=== PATIENT | female | born 1975 | race Caucasian/White ===

== ENCOUNTER 2021-03-12 19:02 | Emergency (ER) | payer MEDICAID ==
--- NOTE | 2021-03-12 19:58 | EDM.PDOC ---
ED HPI GENERAL MEDICAL PROBLEM - General Chief Complaint: ENT Problem Stated Complaint: POSSIBLE EAR INFECTION Time Seen by Provider: 03/12/21 19:46 Source of Information: Reports: Patient History Limitations: Reports: No Limitations - History of Present Illness INITIAL COMMENTS - FREE TEXT/NARRATIVE: Maylin is a 46-year-old female presenting to the ED for evaluation of right ear pain. She states that she was seen in the walk-in clinic of [facility] yesterday and was started on polymyxin Neosporin otic. She has been taking this for the last 24 hours but has had 0 relief of pain. In fact the pain has been worsening on the right ear causing headache. She denies any fever or chills. She does have some nasal congestion. She has had no sore throat or cough. She denies any shortness of breath or chest pain. He has had some rhinorrhea. Right Ear Pain Score (Numeric/FACES): 10 - Related Data Allergies Allergy/AdvReac Type Severity Reaction Status Date / Time diphenhydramine Allergy Vomiting Verified 03/12/21 19:42 [From Benadryl] Penicillins Allergy Rash Verified 03/12/21 19:42 sumatriptan [From Imitrex] Allergy Vomiting Verified 03/12/21 19:42 Home Meds: Home Meds Erenumab-Aooe [Aimovig Autoinjector] 1 dose INJECT ASDIRECTED 03/12/21 [History] Mirtazapine 1 tab PO DAILY 03/12/21 [History] QUEtiapine Fumarate [Seroquel] 5 tab PO BEDTIME 03/12/21 [History] Sertraline [Zoloft] 2 tab PO DAILY 03/12/21 [History] busPIRone [Buspar] 1 tab PO DAILY 03/12/21 [History] busPIRone [Buspar] 1 tab PO DAILY 03/12/21 [History] lamoTRIgine [Lamotrigine ER] 1 tab PO BEDTIME 03/12/21 [History] ED ROS ENT - Review of Systems Review Of Systems: See Below Constitutional: Reports: No Symptoms HEENT: Reports: Ear Pain (Right ear), Rhinitis (Mild rhinitis with nasal congestion) Respiratory: Reports: No Symptoms Cardiovascular: Reports: No Symptoms Endocrine: Reports: No Symptoms GI/Abdominal: Reports: No Symptoms Neurological: Reports: No Symptoms Psychiatric: Reports: No Symptoms Hematologic/Lymphatic: Reports: No Symptoms Immunologic: Reports: No Symptoms ED EXAM, ENT - Physical Exam Exam: See Below Exam Limited By: No Limitations General Appearance: Alert, Mild Distress Eye Exam: Bilateral Eye: EOMI, PERRL Ears: Normal External Exam, Normal Canal, TM Bulging (Right TM is bulging with a serous effusion), TM Fluid. No: Mastoid Swelling, Canal Blood, Canal D ischarge, Canal Swelling, TM Erythema Nose: Clear Rhinorrhea, Nasal Discharge, Nasal Swelling Mouth/Throat: Normal Inspection, Normal Oropharynx Course - Vital Signs Last Recorded V/S: Last Vital Signs Temp 36.8 C 03/12/21 19:35 Pulse 75 03/12/21 19:35 Resp 16 03/12/21 19:35 BP 163/90 H 03/12/21 19:35 Pulse Ox 96 03/12/21 19:35 - Re-Assessments/Exams Free Text/Narrative Re-Assessment/Exam: 03/12/21 20:01 the patient has a distended right ear with a serous effusion. We tried divers reflex to clear the fluid, however, the left ear "popped" but no change in the right ear. I recommended the use of either intranasal anti- inflammatories like Afrin or oral decongestants like pseudoephedrine to reduce swelling in the nose and allow the eustachian tube to function properly. We also talked about using warm compresses behind the ear to relax eustachian tube. Unfortunately, the antipurine drops are no longer manufactured so we cannot use those to control pain to that but I did recommend the use of either naproxen or ibuprofen for pain control. I did recommend she discontinue the polymyxin Neosporin drops as she does not have an otitis externa. Indications to return to the ED were discussed and she is discharged in satisfactory condition. Departure - Departure Time of Disposition: 19:56 Disposition: Home, Self-Care 01 Clinical Impression: Acute dysfunction of eustachian tube, Acute effusion of right ear - Discharge Information Instructions: Eustachian Tube Dysfunction Referrals: Barbara Haywood DO [Primary Care Provider] - Care Plan Goals: I would recommend using a decongestant like pseudoephedrine or Mucinex, or a nasal decongestant spray like Afrin 12-hour 2 sprays in each nostril twice daily for 2 to 3 days to reduce inflammation and swelling in the nose and allow the eustachian tubes to drain the fluid behind the eardrum which is what is causing your pain. I would not continue using the eardrops prescribed earlier today as they are for an external ear infection which you do not have. You may use naproxen or ibuprofen for pain relief as well. Both of these will also reduce inflammation in addition to taking care of pain. I have given you a work note taking you off work for Tuesday. I do anticipate that she will get better though in the next 24 hours with these measures. Sepsis Event Note (ED) - Evaluation Sepsis Screening Result: No Definite Risk - Focused Exam Vital Signs: Vital Signs Temp Pulse Resp BP Pulse Ox 03/12/21 19:35 36.8 C 75 16 163/90 H 96 - Problem List & Annotations (1) Acute dysfunction of eustachian tube SNOMED Code(s): 71806282, 689743249 Code(s): H69.80 - OTH DISRD OF EUSTACHIAN TUBE, UNSPECIFIED EAR Status: Acute Priority: Low Current Visit: Yes Qualifiers: Laterality: right Qualified Code(s): H69.81 - Other specified disorders of Eustachian tube, right ear (2) Acute effusion of right ear SNOMED Code(s): 37706102 Code(s): H65.191 - OTHER ACUTE NONSUPPURATIVE OTITIS MEDIA, RIGHT EAR Status: Acute Priority: Low Current Visit: Yes - Problem List Review Problem List Initiated/Reviewed/Updated: Yes
== END 2021-03-12 20:15 | disposition home or self-care (01) ==
LOC: JP.ED 19:02
DX: H69.91 Unspecified Eustachian tube disorder, right ear (principal); H93.91 Unspecified disorder of right ear; Z88.0 Allergy status to penicillin; Z88.8 Allergy status to other drugs, medicaments and biological substances
CPT/HCPCS: 99282

== ENCOUNTER 2021-10-03 13:05 | Emergency (ER) | payer MEDICAID ==
[2021-10-03] MEDS ORDERED: Lidocaine 1% 5 ML VIAL INJECT ONE (16:04)
[2021-10-03] MEDS ORDERED: Bacitracin Oint 1 GM U/D Packet TOP ONE (16:04)
[2021-10-03] MEDS ORDERED: Diphtheria,Pertussis(Acell),Tetanus Vaccine 0.5 ML Syringe IM ONE (16:07)
== END 2021-10-03 16:42 | disposition home or self-care (01) ==
LOC: JP.ED 13:05
DX: S61.210A Laceration without foreign body of right index finger without damage to nail, initial encounter (principal); Z90.49 Acquired absence of other specified parts of digestive tract; Z23 Encounter for immunization; Z79.899 Other long term (current) drug therapy; Z88.0 Allergy status to penicillin; Z88.8 Allergy status to other drugs, medicaments and biological substances; W26.8XXA Contact with other sharp object(s), not elsewhere classified, initial encounter; Y99.0 Civilian activity done for income or pay
CPT/HCPCS: 12001; 90471; 90715; 99281; 99282-25

== ENCOUNTER 2023-04-02 10:15 | Emergency (ER) | payer MEDICAID, OTHER | END 2023-04-02 11:17 | disposition home or self-care (01) | LOC: JP.ED 10:15 | DX: L51.9 Erythema multiforme, unspecified (principal); R03.0 Elevated blood-pressure reading, without diagnosis of hypertension; Z88.2 Allergy status to sulfonamides; Z88.8 Allergy status to other drugs, medicaments and biological substances; Z88.1 Allergy status to other antibiotic agents | CPT/HCPCS: 99282 ==

== ENCOUNTER 2024-05-29 18:46 | Emergency (ER) | payer MEDICAID ==
[2024-05-29] MEDS: Proparacaine 0.5% Ophth Soln 15 ML Bottle EYEBOTH ONE (19:22)
[2024-05-29] MEDS: Polymyxin B/Trimethoprim 10 ML Bottle EYEBOTH ONE (20:36)
== END 2024-05-29 20:53 | disposition home or self-care (01) ==
LOC: JP.ED 18:46
DX: S05.02XA Injury of conjunctiva and corneal abrasion without foreign body, left eye, initial encounter (principal); S05.01XA Injury of conjunctiva and corneal abrasion without foreign body, right eye, initial encounter; H51.0 Palsy (spasm) of conjugate gaze; I10 Essential (primary) hypertension; Z86.16 Personal history of COVID-19; Z90.49 Acquired absence of other specified parts of digestive tract; Z79.899 Other long term (current) drug therapy; Z88.8 Allergy status to other drugs, medicaments and biological substances; Z88.0 Allergy status to penicillin; X58.XXXA Exposure to other specified factors, initial encounter
CPT/HCPCS: 99283; A9270-GY

== ENCOUNTER 2024-09-30 22:42 | Emergency (ER) | payer MEDICAID | END 2024-10-01 00:58 | disposition home or self-care (01) | LOC: JP.ED 22:42 | DX: L25.9 Unspecified contact dermatitis, unspecified cause (principal); I10 Essential (primary) hypertension; J45.909 Unspecified asthma, uncomplicated; Z86.16 Personal history of COVID-19; Z87.891 Personal history of nicotine dependence; Z79.899 Other long term (current) drug therapy; Z88.0 Allergy status to penicillin; Z88.8 Allergy status to other drugs, medicaments and biological substances | CPT/HCPCS: 99283 ==

== ENCOUNTER 2024-11-05 12:13 | Emergency (ER) | payer MEDICAID ==
[2024-11-05 13:03] LABS: BASOPHILS ABSOLUTE AUTO 0.06 K/uL (0.00-0.10); BASOPHILS PERCENT AUTO 0.7 % (0.1-1.3); EOSINOPHILS ABSOLUTE AUTO 0.25 K/uL (0.00-0.40); EOSINOPHILS PERCENT AUTO 2.9 % (0.0-5.4); HEMATOCRIT 38.8 % (34.3-46.0); HEMOGLOBIN 12.6 g/dL (11.2-15.5); IMMATURE GRAN PERCENT AUTO 0.2 % (0.0-0.7); LYMPHOCYTES ABSOLUTE AUTO 2.34 K/uL (0.8-3.3); LYMPHOCYTES PERCENT AUTO 27.2 % (11.4-47.7); MEAN CORPUSCULAR HEMOGLOBIN 30.9 pg (31.6-35.5); MEAN CORPUSCULAR HGB CONC 32.5 g/dL (31.6-35.5); MEAN CORPUSCULAR VOLUME 95.1 fL (81.4-99.0); MONOCYTES ABSOLUTE AUTO 0.49 K/uL (0.20-0.90); MONOCYTES PERCENT AUTO 5.7 % (3.3-12.6); NEUTROPHILS ABSOLUTE AUTO 5.45 K/uL (1.0-7.6); NEUTROPHILS PERCENT AUTO 63.3 % (40.0-78.1); PLATELET COUNT,PLT 232 K/uL (130-375); RED BLOOD CELL COUNT 4.08 M/uL (3.77-5.24); WHITE BLOOD CELL COUNT,WBC 8.6 K/uL (3.2-11.0)
[2024-11-05 13:07] LABS: IMMATURE GRAN ABSOLUTE AUTO 0.02 K/uL (0.00-0.23)
[2024-11-05 13:27] LABS: ANION GAP 5.8 mmol/L (5.0-14.0); CREATININE 0.8 mg/dL (0.6-1.0); EST CRCL DRUG DOSING (CG) 78.76 mL/min; POTASSIUM,K 4.1 mmol/L (3.6-5.2)
[2024-11-05] MEDS: Sodium Chloride 0.9% 100 ML IV SCH (13:53)
[2024-11-05] MEDS: Iopamidol 755 Mg/ML 100 ML Bottle IV SCH (13:54)
[2024-11-05] MEDS: Sodium Chloride 0.9% 10 ML Syringe FLUSH ONE (14:18)
== END 2024-11-05 16:37 | disposition home or self-care (01) ==
LOC: JP.ED 12:13
DX: R07.2 Precordial pain (principal); I10 Essential (primary) hypertension; Z88.0 Allergy status to penicillin; Z88.8 Allergy status to other drugs, medicaments and biological substances; Z79.899 Other long term (current) drug therapy; Z86.16 Personal history of COVID-19; Z90.49 Acquired absence of other specified parts of digestive tract
CPT/HCPCS: 36415; 71046; 71275; 80048; 84484; 85025; 85379; 93005; 99285; Q9967; 93010; 99283

== ENCOUNTER 2024-12-02 12:47 | Emergency (ER) | payer MEDICAID ==
[2024-12-02 14:33] LABS: BASOPHILS ABSOLUTE AUTO 0.05 K/uL (0.00-0.10); BASOPHILS PERCENT AUTO 0.5 % (0.1-1.3); EOSINOPHILS ABSOLUTE AUTO 0.15 K/uL (0.00-0.40); EOSINOPHILS PERCENT AUTO 1.5 % (0.0-5.4); IMMATURE GRAN PERCENT AUTO 0.2 % (0.0-0.7); LYMPHOCYTES ABSOLUTE AUTO 2.26 K/uL (0.8-3.3); LYMPHOCYTES PERCENT AUTO 23.3 % (11.4-47.7); MONOCYTES ABSOLUTE AUTO 0.56 K/uL (0.20-0.90); MONOCYTES PERCENT AUTO 5.8 % (3.3-12.6); NEUTROPHILS ABSOLUTE AUTO 6.64 K/uL (1.0-7.6); NEUTROPHILS PERCENT AUTO 68.7 % (40.0-78.1); PLATELET COUNT,PLT 297 K/uL (130-375); RED BLOOD CELL COUNT 4.65 M/uL (3.77-5.24); WHITE BLOOD CELL COUNT,WBC 9.7 K/uL (3.2-11.0)
[2024-12-02 14:34] LABS: IMMATURE GRAN ABSOLUTE AUTO 0.02 K/uL (0.00-0.23)
[2024-12-02 14:51] LABS: APPEARANCE,URINE SLIGHTLY CLOUDY (CLEAR); GLUCOSE,URINE NEGATIVE (NEGATIVE); OCCULT BLOOD,URINE NEGATIVE (NEGATIVE)
[2024-12-02 15:03] LABS: A/G RATIO 0.8 (1.2-2.2); ALANINE AMINOTRANSFERASE,ALT 30 U/L (12-78); ASPARTATE AMNIOTRANSFERASE,AST 25 U/L (15-37); BILIRUBIN TOTAL 0.4 mg/dL (0.2-1.0); BLOOD UREA NITROGEN,BUN 15 mg/dL (7-18); CARBON DIOXIDE,CO2 32 mmol/L (21-32); CHLORIDE,CL 103 mmol/L (100-108); CREATININE 0.9 mg/dL (0.6-1.0); EST CRCL DRUG DOSING (CG) 70.01 mL/min; ESTIMATED GFR 78 mL/min (>60); GLUCOSE RANDOM 99 mg/dL (74-106); POTASSIUM,K 4.1 mmol/L (3.6-5.2); PROTEIN TOTAL,TP 7.7 g/dL (6.4-8.2); SODIUM,NA 141 mmol/L (140-148)
[2024-12-02 15:13] LABS: SQUAMOUS EPITHELIAL CELLS,UR MODERATE /HPF
== END 2024-12-02 18:06 | disposition home or self-care (01) ==
LOC: JP.ED 12:47
DX: R07.9 Chest pain, unspecified (principal); I10 Essential (primary) hypertension; J45.909 Unspecified asthma, uncomplicated; Z86.16 Personal history of COVID-19; Z88.0 Allergy status to penicillin; Z88.8 Allergy status to other drugs, medicaments and biological substances; Z79.01 Long term (current) use of anticoagulants; Z79.899 Other long term (current) drug therapy
CPT/HCPCS: 36415; 71046; 71046-26; 80053; 81001; 84484; 85025; 87086; 93005; 93010; 96372; 99284; 99285; J1171

== ENCOUNTER 2024-12-24 13:54 | Emergency (ER) | payer MEDICAID ==
[2024-12-24] MEDS ORDERED: Ketorolac 30 MG/ML SDV IM ONE (14:28)
[2024-12-24 14:37] LABS: BASOPHILS ABSOLUTE AUTO 0.04 K/uL (0.00-0.10); BASOPHILS PERCENT AUTO 0.4 % (0.1-1.3); EOSINOPHILS ABSOLUTE AUTO 0.28 K/uL (0.00-0.40); EOSINOPHILS PERCENT AUTO 3.0 % (0.0-5.4); IMMATURE GRAN ABSOLUTE AUTO 0.03 K/uL (0.00-0.23); IMMATURE GRAN PERCENT AUTO 0.3 % (0.0-0.7); LYMPHOCYTES ABSOLUTE AUTO 2.48 K/uL (0.8-3.3); LYMPHOCYTES PERCENT AUTO 26.3 % (11.4-47.7); MONOCYTES ABSOLUTE AUTO 0.62 K/uL (0.20-0.90); MONOCYTES PERCENT AUTO 6.6 % (3.3-12.6); NEUTROPHILS ABSOLUTE AUTO 5.97 K/uL (1.0-7.6); NEUTROPHILS PERCENT AUTO 63.4 % (40.0-78.1); PLATELET COUNT,PLT 251 K/uL (130-375); RED BLOOD CELL COUNT 4.19 M/uL (3.77-5.24); WHITE BLOOD CELL COUNT,WBC 9.4 K/uL (3.2-11.0)
== END 2024-12-24 15:19 | disposition home or self-care (01) ==
LOC: JP.ED 13:54
DX: R07.89 Other chest pain (principal); I10 Essential (primary) hypertension; J45.909 Unspecified asthma, uncomplicated; Z90.49 Acquired absence of other specified parts of digestive tract; Z88.0 Allergy status to penicillin; Z88.8 Allergy status to other drugs, medicaments and biological substances; Z79.01 Long term (current) use of anticoagulants; Z79.899 Other long term (current) drug therapy
CPT/HCPCS: 36415; 84484; 85025; 93010; 99283; 99285

== ENCOUNTER 2025-01-19 09:07 | Emergency (ER) | payer MEDICAID ==
[2025-01-19 10:16] LABS: BASOPHILS ABSOLUTE AUTO 0.03 K/uL (0.00-0.10); BASOPHILS PERCENT AUTO 0.3 % (0.1-1.3); EOSINOPHILS ABSOLUTE AUTO 0.16 K/uL (0.00-0.40); EOSINOPHILS PERCENT AUTO 1.8 % (0.0-5.4); IMMATURE GRAN ABSOLUTE AUTO 0.03 K/uL (0.00-0.23); IMMATURE GRAN PERCENT AUTO 0.3 % (0.0-0.7); LYMPHOCYTES ABSOLUTE AUTO 1.79 K/uL (0.8-3.3); LYMPHOCYTES PERCENT AUTO 20.5 % (11.4-47.7); MONOCYTES ABSOLUTE AUTO 0.57 K/uL (0.20-0.90); MONOCYTES PERCENT AUTO 6.5 % (3.3-12.6); NEUTROPHILS ABSOLUTE AUTO 6.17 K/uL (1.0-7.6); NEUTROPHILS PERCENT AUTO 70.6 % (40.0-78.1); PLATELET COUNT,PLT 257 K/uL (130-375); RED BLOOD CELL COUNT 4.36 M/uL (3.77-5.24); WHITE BLOOD CELL COUNT,WBC 8.8 K/uL (3.2-11.0)
[2025-01-19] MEDS: Ondansetron 4 MG Tab.DIS PO ONE (10:31)
[2025-01-19 10:38] LABS: A/G RATIO 0.8 (1.2-2.2); ALANINE AMINOTRANSFERASE,ALT 22 U/L (12-78); ASPARTATE AMNIOTRANSFERASE,AST 17 U/L (15-37); BILIRUBIN TOTAL 0.5 mg/dL (0.2-1.0); BLOOD UREA NITROGEN,BUN 11 mg/dL (7-18); CARBON DIOXIDE,CO2 33 mmol/L (21-32); CHLORIDE,CL 103 mmol/L (100-108); CREATININE 0.6 mg/dL (0.6-1.0); EST CRCL DRUG DOSING (CG) 109.08 mL/min; ESTIMATED GFR 109 mL/min (>60); GLUCOSE RANDOM 92 mg/dL (74-106); POTASSIUM,K 4.1 mmol/L (3.6-5.2); PROTEIN TOTAL,TP 7.6 g/dL (6.4-8.2); SODIUM,NA 138 mmol/L (140-148)
[2025-01-19 11:51] LABS: APPEARANCE,URINE CLEAR (CLEAR); GLUCOSE,URINE NEGATIVE (NEGATIVE); OCCULT BLOOD,URINE NEGATIVE (NEGATIVE)
== END 2025-01-19 12:43 | disposition home or self-care (01) ==
LOC: JP.ED 09:07
DX: R11.2 Nausea with vomiting, unspecified (principal); I10 Essential (primary) hypertension; Z79.899 Other long term (current) drug therapy; Z79.01 Long term (current) use of anticoagulants; Z88.0 Allergy status to penicillin; Z88.8 Allergy status to other drugs, medicaments and biological substances
CPT/HCPCS: 36415; 80053; 81003; 83605; 83690; 85025; 87428; 99284; Q0162

== ENCOUNTER 2025-02-09 11:11 | Emergency (ER) | payer MEDICAID ==
[2025-02-09 11:57] LABS: BASOPHILS ABSOLUTE AUTO 0.06 K/uL (0.00-0.10); BASOPHILS PERCENT AUTO 0.6 % (0.1-1.3); EOSINOPHILS ABSOLUTE AUTO 0.07 K/uL (0.00-0.40); EOSINOPHILS PERCENT AUTO 0.7 % (0.0-5.4); IMMATURE GRAN PERCENT AUTO 0.2 % (0.0-0.7); LYMPHOCYTES ABSOLUTE AUTO 2.23 K/uL (0.8-3.3); LYMPHOCYTES PERCENT AUTO 21.2 % (11.4-47.7); MONOCYTES ABSOLUTE AUTO 0.79 K/uL (0.20-0.90); MONOCYTES PERCENT AUTO 7.5 % (3.3-12.6); NEUTROPHILS ABSOLUTE AUTO 7.37 K/uL (1.0-7.6); NEUTROPHILS PERCENT AUTO 69.8 % (40.0-78.1); PLATELET COUNT,PLT 382 K/uL (130-375); RED BLOOD CELL COUNT 4.57 M/uL (3.77-5.24); WHITE BLOOD CELL COUNT,WBC 10.5 K/uL (3.2-11.0)
[2025-02-09 11:58] LABS: IMMATURE GRAN ABSOLUTE AUTO 0.02 K/uL (0.00-0.23)
[2025-02-09 11:59] LABS: A/G RATIO 0.9 (1.2-2.2); ALANINE AMINOTRANSFERASE,ALT 25 U/L (12-78); ASPARTATE AMNIOTRANSFERASE,AST 23 U/L (15-37); BILIRUBIN TOTAL 0.8 mg/dL (0.2-1.0); BLOOD UREA NITROGEN,BUN 19 mg/dL (7-18); CARBON DIOXIDE,CO2 28 mmol/L (21-32); CHLORIDE,CL 100 mmol/L (100-108); CREATININE 1.0 mg/dL (0.6-1.0); EST CRCL DRUG DOSING (CG) 65.45 mL/min; ESTIMATED GFR 69 mL/min (>60); GLUCOSE RANDOM 116 mg/dL (74-106); POTASSIUM,K 3.7 mmol/L (3.6-5.2); PROTEIN TOTAL,TP 8.1 g/dL (6.4-8.2); SODIUM,NA 140 mmol/L (140-148); TROPONIN I HIGH SENSITIVITY 24.7 pg/mL (<=60.3)
[2025-02-09] MEDS: Sodium Chloride 0.9% 10 ML Syringe FLUSH ONE (12:41)
[2025-02-09] MEDS: Iopamidol 755 Mg/ML 100 ML Bottle IV SCH (12:48)
== END 2025-02-09 14:06 ==
LOC: JP.ED 11:11
DX: R07.1 Chest pain on breathing (principal); I10 Essential (primary) hypertension; J45.909 Unspecified asthma, uncomplicated; Z90.49 Acquired absence of other specified parts of digestive tract; Z88.0 Allergy status to penicillin; Z88.8 Allergy status to other drugs, medicaments and biological substances; Z79.01 Long term (current) use of anticoagulants; Z79.899 Other long term (current) drug therapy
CPT/HCPCS: 36415; 71046; 71275; 80053; 84484; 85025; 85379; 99285; A9270; J7040; Q9967; 99284